=== PATIENT | male | born 1955 | race Hispanic/Latino ===

== ENCOUNTER → 2017-05-05 | Day surgery (SDC) | payer BC ==
[2017-04-28 16:34] LABS: ANION GAP 10.9 mmol/L (8-16); BLOOD UREA NITROGEN 22 mg/dL (7-26); BUN/CREATININE RATIO 23 (6-25); CALCIUM 9.6 mg/dL (8.4-10.2); CARBON DIOXIDE 29 mmol/L (22-29); CHLORIDE 103 mmol/L (98-107); CREATININE, SERUM 0.96 mg/dL (0.72-1.25); EST GLOMERULAR FILTRATION RATE > 60 ML/MIN (60-); GLUCOSE 127 mg/dL (74-118); POTASSIUM 3.9 mmol/L (3.5-5.1); SODIUM 139 mmol/L (136-145)
[~2017-05-05] MED LIST: BLOOD PRESSURE PO; BUPIVACAINE HCL 0.5% INJ 30 ML VIAL INJ ONE; CEFAZOLIN SOD 1 GM VIAL ONE; DEXAMETHASONE SOD PHOS INJ 4 MG/ML VIAL ONE; FENTANYL CITRATE/PF 100MCG/2 ML INJ ONE; IBUPROFEN400 MG PO; LIDOCAINE HCL 2% LOCAL INJ 5 ML SDV VIAL INJ ONE; LOSARTAN POTASS25 MG PO; METFORMIN HCL500 M2 PO; MIDAZOLAM HCL 2 MG/2 ML VIAL ONE; ONDANSETRON HCL INJ 2 MG/ML VIAL ONE; PROPOFOL IV EMULSION 10 MG/ML 20 ML VIAL ONE; SEVOFLURANE INHAL SOLN 250 ML PEN BTL ONE
--- NOTE | 2017-05-05 10:28 | Operative Report ---
DATE OF PROCEDURE: May 05, 2017 DATE OF : 1955 PREOPERATIVE DIAGNOSES 1. Left heel spur with plantar fasciotomy. 2. Left talonavicular exostosis. POSTOPERATIVE DIAGNOSES 1. Left heel spur with plantar fasciotomy. 2. Left talonavicular exostosis. PLANNED PROCEDURES 1. Left excision of heel spur with plantar fasciotomy. 2. Left exostectomy of talonavicular exostosis. SURGEON: Jerald Love DPM SCREEN PRINTING PRESS OPERATOR: Keyla Nascimento DPM ANESTHESIA: General with a postoperative block consisting of 15 mL of 0.5% Marcaine plain. HEMOSTASIS: Pneumatic thigh tourniquet set at 350 mmHg for a total time of approximately 25 minutes. MATERIALS: 3-0 Vicryl and 4-0 Prolene. ESTIMATED BLOOD LOSS: Less than 10 mL. PATHOLOGY: None. DETAILS OF PROCEDURE: Patient was seen in the preoperative waiting room where the correct procedure and site was identified. The patient was brought to the operating room and placed on the operating table in the supine position. General anesthesia was initiated at this time. A well-padded pneumatic tourniquet was placed about the patient's left thigh. The left foot and ankle were then scrubbed, prepped and draped in the usual aseptic manner. The left foot, ankle, and leg was exsanguinated with an Esmarch bandage and the pneumatic thigh tourniquet was inflated to 350 mmHg for a total time of approximately 25 minutes. Attention was directed to the medial aspect of the patient's left heel where a 4 cm linear incision was made parallel to the plantar fascia. The incision was carried through subcutaneous tissues, them from deeper underlying structures. All vital neurovascular structures were identified, retracted medially and laterally, and all bleeders were cauterized or ligated as deemed necessary. Next, the plantar fascia was easily identified dorsally and plantarly utilizing blunt dissection with Metzenbaum scissors. The plantar fascia was cut approximately one-third to one-half to allow for good visualization of the heel spur. The heel spur was identified and smoothed utilizing a heel rasp. The wound was then flushed with copious amounts of sterile saline. Deep tissue was reapproximated with 3-0 Vicryl, subcutaneous tissue was reapproximated with 3-0 Vicryl, and the skin was closed using a running interlocking stitch with 4-0 Prolene. Attention was directed to the dorsal aspect of the talonavicular joint where a 5 cm linear incision was made. The incision was carried through the subcutaneous tissue, them from deeper underlying structures. All vital neurovascular structures were identified, retracted medially and laterally, and all bleeders were cauterized or ligated as deemed necessary. The dissection was carried down to the talonavicular capsule, which was entered with a linear capsulotomy. The exostosis was noted at the mid substance of the talonavicular joint. Utilizing an osteotome and mallet, this was resected and passed off to the back table. Dorsal spurring of the talus was also resected and passed off to the back table. Utilizing a rasp, the remainder of the bone was smoothed to anatomic alignment. The wound was flushed with copious amounts of sterile saline. Capsule and deep tissue were reapproximated with 3-0 Vicryl, subcutaneous tissue with 3-0 Vicryl, and the skin was closed utilizing a running interlocking stitch with 4-0 Prolene. Patient tolerated the procedure and anesthesia well. Patient was transferred to the postoperative recovery room with vital signs stable and neurovascular status intact. Patient was monitored there for a short period time before being sent home with the following written and oral instructions: 1. Keep the dressing clean, dry, and tact. 2. The patient is to remain nonweightbearing to the left lower extremity to avoid any ambulation until being seen in the office. 3. Patient was given the office number and instructed to contact us if any problems should arise. Job#: [id number] SAK
== END | disposition home or self-care (01) ==
LOC: OR 06:55
PROVIDERS: ATTEND Podiatrist Foot & Ankle Surgery
DX: M77.32 Calcaneal spur, left foot (principal); M77.52 Other enthesopathy of left foot and ankle; I10 Essential (primary) hypertension; E11.9 Type 2 diabetes mellitus without complications; Z01.810 Encounter for preprocedural cardiovascular examination; Z01.812 Encounter for preprocedural laboratory examination
CPT/HCPCS: 28100; 28119; 36415 ×2; 80048; 82948; 93005; J0690; J1100; J2001; J2250; J2405

== ENCOUNTER 2019-11-11 06:33 | Observation (INO) | payer MEDICARE, OTHER ==
[2019-11-08 09:39] LABS: BASOPHILS % 0.4 % (0.0-1.0); EOSINOPHILS # (AUTO) 0.2 (0.0-0.4); EOSINOPHILS % 3.3 % (0.0-6.0); HEMOGLOBIN 14.4 g/dL (14.0-18.0); LYMPHOCYTES # (AUTO) 2.6 (1.0-3.2); LYMPHOCYTES % 35.3 % (18.0-39.1); MEAN CORPUSCULAR HEMOGLOBIN 28.1 pg (28-32); MEAN CORPUSCULAR HGB CONC 32.7 g/dL (31-35); MEAN CORPUSCULAR VOLUME 85.8 fL (81-99); MONOCYTES # (AUTO) 0.4 (0.2-0.8); NEUTROPHILS % 54.7 % (38.7-80.0); PLATELET COUNT 207 x10e3/uL (140-360); RED BLOOD COUNT 5.13 x10e6/uL (4.3-5.7); RED CELL DISTRIBUTION WIDTH 13.4 % (11.7-14.4)
[2019-11-08 09:51] LABS: INR 0.85
[2019-11-08 09:52] LABS: PARTIAL THROMBOPLASTIN TIME 27.7 seconds (23.8-35.5)
[2019-11-08 10:02] LABS: ALANINE AMINOTRANSFERASE 18 IU/L (0-55); ALBUMIN 3.9 g/dL (3.5-5.0); ALBUMIN/GLOBULIN RATIO 1.1 (0.8-2.0); ALKALINE PHOSPHATASE 60 IU/L (40-150); ANION GAP 13.3 mmol/L (8-16); BLOOD UREA NITROGEN 23 mg/dL (7-26); BUN/CREATININE RATIO 22 (6-25); CALCIUM 9.3 mg/dL (8.4-10.2); CARBON DIOXIDE 28 mmol/L (22-29); CHLORIDE 101 mmol/L (98-107); CREATININE, SERUM 1.06 mg/dL (0.72-1.25); EST GLOMERULAR FILTRATION RATE > 60 ML/MIN (60-); GLUCOSE 153 mg/dL (74-118); POTASSIUM 4.3 mmol/L (3.5-5.1); SODIUM 138 mmol/L (136-145)
[~2019-11-11] VITALS: Ht 165.1 cm; Wt 90.7 kg
[2019-11-11] VITALS (11 sets, daily range): BP systolic 115–145; BP diastolic 64–88
[~2019-11-11 06:33] MED LIST changes: +ASPIRIN EC81 MG PO; -BUPIVACAINE HCL 0.5% INJ 30 ML VIAL INJ ONE; -CEFAZOLIN SOD 1 GM VIAL ONE; -DEXAMETHASONE SOD PHOS INJ 4 MG/ML VIAL ONE; -FENTANYL CITRATE/PF 100MCG/2 ML INJ ONE; +HYDROCHLOROTHIA25 MG PO; -LIDOCAINE HCL 2% LOCAL INJ 5 ML SDV VIAL INJ ONE; +LOSARTAN POTAS100 MG PO; +METFORMIN HCL500 MG PO; +METOPROLOL SUCC25 MG PO; -MIDAZOLAM HCL 2 MG/2 ML VIAL ONE; +NITROGLYCERIN0.4 MG SL; -ONDANSETRON HCL INJ 2 MG/ML VIAL ONE; -PROPOFOL IV EMULSION 10 MG/ML 20 ML VIAL ONE; -SEVOFLURANE INHAL SOLN 250 ML PEN BTL ONE; +ZETIA10 MG PO
[2019-11-11] MEDS ORDERED: MIDAZOLAM HCL 2 MG/2 ML VIAL ONE (08:22)
[2019-11-11] MEDS ORDERED: VERAPAMIL HCL 2.5 MG/ML 2 ML VIAL ONE (08:22)
[2019-11-11] MEDS ORDERED: FENTANYL CITRATE/PF 100MCG/2 ML INJ ONE (08:23)
[2019-11-11] MEDS ORDERED: HEPARIN SOD/SOD CHLORIDE 2,000 ML ONE (08:23)
[2019-11-11] MEDS ORDERED: LIDOCAINE HCL 2% LOCAL 20 ML VIAL ONE (08:23)
[2019-11-11] MEDS ORDERED: SODIUM CHLORIDE 0.9% 1000ML 1,000 ML ONE (08:24)
[2019-11-11] MEDS ORDERED: IOPAMIDOL 370 MG/ML 200 ML INFUS..BTL INJ ONE (08:24)
[2019-11-11] MEDS ORDERED: CLOPIDOGREL BISULFATE 75 MG TAB ONE (11:45)
[2019-11-11] MEDS ORDERED: ASPIRIN 325 MG TAB ONE (11:45)
--- NOTE | 2019-11-11 12:06 | NUR ---
1206 Received pt to room #9 identiferx2,bedside report received from Edgar OSUNA. Alert oriented and appropriate, PERRLA, respirations even and unlabored to room air. Pulses x4 extremities equal and strong. Pedal pulses PT/DP X4pp and marked. Cap fill brisk < 3 sec. rt tr band site dry and intact. Skin warm and dry integrity appears D/I. IV 20g to left hand, presents healthy w/o s/s of infiltration or complaint. Abdomen soft and supple. pt offered toileting, denies need to urinate or defecate. No personal affects with patient. Family at bedside. Pt and family verbalizes understanding of POC. Currently w/o complaint of pain or need. bed ordered admit for overnight stay ds/ben
--- NOTE | 2019-11-11 13:00 | NUR ---
1300p RADIAL Compression removal: Initial Cuff volume 12 cc 1300p -2cc Removed No hematoma/bleeding noted with normal neurovascular function. 1315cc -5cc Removed No hematoma/ bleeding noted with normal neurovascular function. 1330cc -5cc Removed No hematoma/bleeding noted with normal neurovascular function. Air removal completed. Stasis achieved sterile 2x2,Tegaderm, Coban dressing No hematoma, bleeding noted with normal neurovascular function. Wrist splint in place. Pt instructed on POC. Ds/Rn
--- NOTE | 2019-11-11 13:30 | NUR ---
6700p received bed Rm 214 from [facility], phone report ds/rn
--- NOTE | 2019-11-11 14:15 | NUR ---
1415 Report provided to ENRRIQUE Fung(Rm 214), review of procedural findings and floor orders reviewed with bedside staff receiving pt. Pt VS stable TR band is off. Teaching completed to and has copies of teaching tool and diagram. No gross issues pain,pallor pressure or dysrhythmia. Pt room air saturations of 94-96%. IV site patent with NS 0.9% to continue at 75cc./hr. Patient hemodynamically stable and in Sinus Marcelino. Report to monitor room. [facility]o incident. transported to [facility]/en[facility]
[2019-11-11] MEDS ORDERED: NITROGLYCERIN 0.4 MG SUBL SL PRN (14:45)
[2019-11-11] MEDS ORDERED: SODIUM CHLORIDE 0.9% 1000ML 1,000 ML IV ONE (14:45)
[2019-11-11] MEDS ORDERED: DEXTROSE 50% SYRINGE 50 ML IV PRN (14:45)
--- NOTE | 2019-11-11 15:00 | NUR ---
PATIENT ARRIVED TO ROOM 214 AT 1424 FROM [facility]IX DEVEL[facility]. PATIENT IS IN STABLE CONDITION. IV LINE PATENT, NORMAL SALINE CONTINUED ORDERED BY FROM BAG THAT [employer] DEVELOPER NURSE BROUGHT TO ROOM. PATIENT ORIENTED TO ROOM AND POLICIES. CALL LIGHT WITHIN REACH. BED IN THE LOWEST POSITION.
[2019-11-11] MEDS: INSULIN LISPRO 100 UNIT/1 ML 3ML VIAL SQ SCH ×2 (16:30→21:00)
--- NOTE | 2019-11-11 19:00 | NUR ---
BEDSIDE SHIFT REPORT GIVEN TO ONCOMING NURSE. PATIENT IS RESTING IN BED, NO S/S OF DISTRESS NOTED. CALL LIGHT WITHIN REACH. BED IN THE LOWEST POSITION.
--- NOTE | 2019-11-11 23:32 | Operative Report ---
DATE OF PROCEDURE: 11/11/2019 SURGEON: Larry Emmanuel MD PROCEDURE INDICATION: Unstable angina. PROCEDURE PERFORMED: 1. Left heart catheterization. 2. Selective coronary angiography. 3. OM1 drug-eluting stent PCI and OM1 sub-branch PTCA and left circumflex to OM1 drug-eluting stent, PCI. PROCEDURE COMPLICATIONS: None. SEDATION: Moderate sedation administered throughout the procedure from 1028 to 1158. ESTIMATED BLOOD LOSS: Less than 15 mL. PROCEDURE SUMMARY: After consent was obtained, the patient was prepped and draped in a sterile fashion. The right radial site was locally infiltrated with 2% lidocaine. An access was obtained. A 5-Albanian slender sheath was advanced and a TIG catheter was used to engage the left main, right coronary artery to cross the aortic valve for hemodynamic measurements. XB LAD 3.5 no side-holes guide catheter was used for intervention, which was performed as we will follow. 1. LV pressure is 125/7 with end-diastolic pressure of 17. 2. Aortic pressure is 124/66 with a mean of 70. 3. LV-gram reveals preserved left ventricular systolic function, normal regional wall motion, and left ventricular ejection fraction of 55% to 60%. 4. Left main is large in caliber with moderate calcifications eccentric in distribution with mid to distal 30% left main disease gives an LAD and a circumflex. 5. The LAD ostially has 30% stenosis, proximally 50% stenosis that gives a diagonal septal perforators. The distal LAD has diseased area of 50% to 60% stenosis. 6. The circumflex gives 2 obtuse marginals that has proximal 70% stenosis and after dividing into two terminal branches, the second branch has 95% stenosis proximally with YUMIKO-2 flow distal to the stenosis. The circumflex, the OM1 proximal and 95% stenosis of sub branches were treated with drug-eluting stent PCI with good results. The other terminal branch of OM1 post stenting had ostial pinching, for which PTCA was performed as will be described below. Post procedure, YUMIKO-3 flow, no flow-limiting dissections or perforations were observed with stent strut apposition and extension further description of intervention will be noted below. 7. The left circumflex continues up to the 1st obtuse marginal as small caliber vessel giving a 2nd obtuse marginal up to which the left circumflex is occluded 100% is a chronic occlusion with a small distal OM3 filling via collaterals. The right coronary artery is dominant and has a 60% mid stenosis, 30% distal stenosis, gives a terminal RPDA and RPLV. The RPDA has 60% mid stenosis. Of note, RV marginal arising further mid segment of the RCA has 90% ostial stenosis is less than 1.5 mm in caliber. Drug-eluting stent PCI of the circumflex to obtuse marginal. Using heparin to maintain an ACT over 250, aspirin 325 mg and Plavix 600 mg. A run-through wire was used to cross the area of severe stenosis of the left circumflex into terminal branch with stenosis of the OM1. Predilatation of 95% area of terminal branch stenosis was performed using a 2.0 x 12 Emerge balloon to nominal pressures. This was followed by 2.25 x 12 Synergy drug-eluting stent deployed to nominal pressures. Following this, proximal to the stent, there was a smaller dissection of obtuse marginal for which additional 2.25 x 8 Resolute Rayshawn was deployed to nominal pressures overlapping with the previous stent. The area of 70% left circumflex and proximal OM1 70% stenosis were covered with 2.5 x 22 Resolute Rayshawn drug-eluting stent to nominal pressure. Postdilatation was performed with 2.5 NC Quantum in the overlapping areas. Of note after placement of a 2nd stent, the other terminal branch of OM1 had ostial pinching, which was treated with serial balloon inflations using a [place] Emerge 1.2 x 8, then 1.5 x 8, then 2.0 x 12 with residual YUMIKO-3 flow, less than 30% stenosis across at terminal branch of OM1. This was done proceeding to final NC postdilatation of the stented area. Good stent strut apposition was observed post procedure. YUMIKO-3 flow less than 10% residual stenosis. No flow-limiting dissections or perforations observed. CONCLUSION: Circumflex to obtuse marginal drug-eluting stent PCI in a complex lesion, tandem lesions with bifurcating lesion of a terminal branch of obtuse marginal. Recommend aspirin and Plavix. Continue aggressive medical therapy for moderate multivessel procedural CAD with close outpatient clinic followup observe overnight. Wean TR band, IV fluids. Larry Emmanuel MD AFV/ELOY /[id number]
[2019-11-12] VITALS: BP 118/72
[2019-11-12 04:00] VITALS: BP 107/58
--- NOTE | 2019-11-12 07:05 | NUR ---
RECEIVED CHANGE OF SHIFT REPORT FROM PM NURSE. PT AWAKE, ALERT, NO SIGNS OF DISTRESS. NO COMPLAINTS AT THIS TIME. IN STABLE CONDITION.
[2019-11-12] MEDS: INSULIN LISPRO 100 UNIT/1 ML 3ML VIAL SQ SCH (07:30)
[2019-11-12 08:00] VITALS: BP 140/80
[2019-11-12 08:56] VITALS: BP 107/58
[2019-11-12] MEDS ORDERED: LOSARTAN POTASSIUM 100 MG TAB PO SCH (09:00)
[2019-11-12] MEDS ORDERED: EZETIMIBE 10 MG TAB PO SCH (09:00)
[2019-11-12] MEDS ORDERED: HYDROCHLOROTHIAZIDE 25 MG TAB PO SCH (09:00)
[2019-11-12] MEDS ORDERED: ASPIRIN 81 MG ENTERIC COATED PO SCH (09:00)
[2019-11-12] MEDS ORDERED: METOPROLOL SUCCINATE 25 MG TAB XL PO SCH (09:00)
[2019-11-12] MEDS ORDERED: CLOPIDOGREL75 MG PO (10:38)
--- OUTSIDE RECORDS SUMMARY | 2019-11-12 20:41 | XMS REPORT | Continuity of Care Document ---
Author Author [facility] t Organization [facility] Address [address] [place] [address] Phone Unavailable Care Team Providers Care Adjunct Psychology Instructor Name Role Phone Horacio PEREZ Attphys Unavailable Problems This patient has no known problems. Allergies, Adverse Reactions, Alerts This patient has no known allergies or adverse reactions. Medications This patient has no known medications. Procedures This patient has no known procedures. Results Test Description Test Time Test Comments Results Result Comments Source MRI PELVIS WO/W CLINICAL INDICAT ION: R97.2 Elevated psaMODALITY: Siemens Skyra 3.0 Nini MRITECHNIQUE: T2 sagittal and axial, T1 axial, T1 coronal fat sat, STIR, diffusion and dynamic contrast enhanced imaging are performed. Quantitative analysis is performed with DynaCAD. IV contrast is administered, 15.0 ml Multihance Dynamic post-contrast imaging with MotivanoaCAD quantitative analysis are accomplished.[id number] MR DynaCADIMPRESSION:Targeted area in the right peripheral zone apex, favor prostatitis. No evidence of extra prostatic malignancy.PIRADS 2 - Probably Benign.FINDINGS:COMPARISON: NoneNormal regional marrow signal is observed. No lytic or blastic osseous metastatic lesions.No common iliac, internal iliac, external iliac, inguinal or suspicious igor-prostatic lymph nodes.Regional bowel appears unremarkable. No mural or intraluminal bladder mass. Anterior abdominal wall and pelvic floor are unremarkable. No evidence of ascites.Estimated prostate volume is 37.10 ml. Targeted area measures 1.8 x 1.0 x 0.9 cm in the right posterior lateral peripheral zone at the level of the apex. This demonstrates moderately low T2 signal without definite restricted diffusion or suspicious focal enhancement. Targeted area exhibits relative atrophy compared to the contralateral peripheral zone. On sagittal images, this demonstrates a band-like morphology suggestive of prostatitis.Seminal vesicles exhibit normal signal intensity. Neurovascular bundles are symmetric in appearance without definite tumor involvement. The prostate capsule is smooth in contour. [facility] [address] [address] Patient Name: CEDRIC AVITIA I MR #: [id number] : 1955 Age/Sex: 61/M Req #: [id number] Adm Physician: Ordered by: Horacio PEREZ DPM Report #: [id number] Location: MRI Room/Bed: Procedure: [id number] MRI/MRI FOOT LEFT WO Exam Date: 11/30/16 Exam Time: 1245 REPORT STATUS: Signed MRI of the left mid foot without contrast. History: Foot pain. Bone spur. Decreased range of motion. Plantar fascia fasciitis. Technique: Multiplanar multisequence MRI of the foot without contrast Comparison: None Findings: There is no acute fracture, subluxation or a vasculitic process. Scattered degenerative changes are seen. There is thickening with midsubstance degeneration and partial tearing involving the medial cord of the plantar fascia adjacent to the inferior calcaneal insertion site. This is best seen on sagittal series 8 image 21, axial series 3 image 1 through 3 and coronal series 6 image 21 through 23. The most proximal portion of the plantar fascia is not imaged. The visualized muscles are normal in size, signal intensity and morphology. The visualized neurovascular bundles are intact. Impression: Findings consistent with medial cord plantar fasciitis/partial tearing. The most proximal portion of the plantar fascia at the inferior calcaneal insertion site is not imaged. Signed by: Dr. Jasmeet Wise M.D. on 12/02/2016 9:32 AM Dictated By: JASMEET WISE MD, MD 1 Transcribed By: PRICILA on 12/02/16931 COPY TO: Horacio PEREZ DPM
== END 2019-11-12 11:30 | disposition home or self-care (01) ==
LOC: CATH LAB 06:33 → CATH LAB V 11:59 → MED/SURG2 14:24
PROVIDERS: ADMIT Internal Medicine Cardiovascular Disease; ATTEND Internal Medicine Cardiovascular Disease
DX: I25.110 Atherosclerotic heart disease of native coronary artery with unstable angina pectoris (principal); I25.84 Coronary atherosclerosis due to calcified coronary lesion; I25.82 Chronic total occlusion of coronary artery; E11.8 Type 2 diabetes mellitus with unspecified complications; Z01.812 Encounter for preprocedural laboratory examination; Z11.59 Encounter for screening for other viral diseases; I10 Essential (primary) hypertension; E78.5 Hyperlipidemia, unspecified; E66.01 Morbid (severe) obesity due to excess calories; Z68.33 Body mass index [BMI] 33.0-33.9, adult; Z79.84 Long term (current) use of oral hypoglycemic drugs; Z79.82 Long term (current) use of aspirin; Z87.442 Personal history of urinary calculi; Z82.3 Family history of stroke; Z83.3 Family history of diabetes mellitus; Z82.49 Family history of ischemic heart disease and other diseases of the circulatory system; Z88.8 Allergy status to other drugs, medicaments and biological substances
CPT/HCPCS: 93458; C9600; C9601; 36415; 80053; 82948; 85025; 85610; 85730; 92928; 92929; 99152; 99153; C1725; C1769; C1874; C1876; C1887; G0378; J2001; J2250; J3010; J7030; Q9967; U0002